=== PATIENT | female | born 1970 | race Native Hawaiian/Other Pacific Islander ===

== ENCOUNTER 2019-12-11 12:19 | Emergency (ER) | payer OTHER ==
[~2019-12-11] VITALS: Ht 167.6 cm; Wt 75.8 kg
[2019-12-11 12:27] VITALS: TEMP 98.7
[2019-12-11 13:22] LABS: PLATELET COUNT 330 K/uL (152-353)
[2019-12-11 13:30] LABS: POTASSIUM 4.5 mmol/L (3.6-5.2); SODIUM 139 mmol/L (136-145)
[2019-12-11 13:43] LABS: PARTIAL THROMBOPLASTIN TIME 26.8 SECONDS (24.5-33.6)
[2019-12-11 16:15] VITALS: BP 105/68
== END 2019-12-11 16:15 | disposition home or self-care (01) ==
LOC: ED 12:19
PROVIDERS: Family Medicine
DX: R07.89 Other chest pain (principal); R51 Headache; M62.838 Other muscle spasm
CPT/HCPCS: 80053; 81000; 82728; 84484; 85027; 85379; 85610; 85730; 93005; 96372; 99283; 99284; J1885